=== PATIENT | male | born 1950 | race Hispanic/Latino ===

== ENCOUNTER 2017-11-26 17:33 | Observation (INO) | payer MEDICARE, MEDICAID ==
[2017-11-26 18:33] VITALS: BMI 31.4
--- NOTE | 2017-11-26 19:30 | ED PDOC ---
Arrival/HPI <Сергей Lee - Last Filed: 11/27/17 01:49> - General Historian: Patient <LornealexandruRian - Last Filed: 11/27/17 02:03> - General Chief Complaint: Lower Extremity Problem/Injury Time Seen by Provider: 11/26/17 19:12 - History of Present Illness Narrative History of Present Illness (Text): 11/26/17 19:27 67 year old male, past medical history of Gout, Heart Valve replacement and pacemaker, hyperlipidemia, and kidney stones, presents to the Emergency department with sharp left knee pain that started yesterday morning. Patient states he woke up with sharp, nonradiating knee pain and erythema that prevents him from bending his knee and ambulating. The pain has disrupted his sleeping. He tried ice packs and Voltarin (Yi muscle cream) that provided minimal relief. He has never experienced this pain before. He states he had an arthroscopic meniscus repair of the opposite knee years ago in [place] that has not caused any issues. Denies fever, chills, nausea, vomiting, shortness of breath, chest pain, headache, dizziness, or urinary symptoms. 11/27/17 01:45 (Rian Randolph) Past Medical History - Provider Review Nursing Documentation Reviewed: Yes - Infectious Disease Hx of Infectious Diseases: None - Tetanus Immunization Tetanus Immunization: Unknown - Cardiac Hx Cardiac Disorders: Yes Hx Pacemaker: Yes (pacemaker/defibrillator) Other/Comment: Heart Valve replacement - Pulmonary Hx Respiratory Disorders: No - Neurological Hx Neurological Disorder: No - HEENT Hx HEENT Disorder: No - Renal Hx Renal Disorder: Yes Hx Kidney Stones: Yes - Endocrine/Metabolic Hx Endocrine Disorders: Yes Hx Diabetes Mellitus Type 2: Yes - Hematological/Oncological Hx Blood Disorders: No - Integumentary Hx Dermatological Disorder: No - Musculoskeletal/Rheumatological Hx Musculoskeletal Disorders: No - Gastrointestinal Hx Gastrointestinal Disorders: No - Genitourinary/Gynecological Hx Genitourinary Disorders: No - Psychiatric Hx Psychophysiologic Disorder: No Hx Substance Use: No - Surgical History Hx Cardiac Catheterization: Yes Hx Coronary Stent: Yes (04/04) Other/Comment: ureteral stent removal right, kub - Anesthesia Hx Anesthesia Reactions: No Hx Malignant Hyperthermia: No - Suicidal Assessment Feels Threatened In Home Enviroment: No <Rian Randolph - Last Filed: 11/27/17 02:03> Family/Social History - Physician Review Nursing Documentation Reviewed: Yes Family/Social History: No Known Family HX Smoking Status: Former Smoker Hx Alcohol Use: No Hx Substance Use: No Hx Substance Use Treatment: No <Rian Randolph - Last Filed: 11/27/17 02:03> Allergies/Home Meds <IrvinggurpreetСергей - Last Filed: 11/27/17 01:49> <Rian Randolph - Last Filed: 11/27/17 02:03> Allergies/Adverse Reactions: Allergies No Known Allergies Allergy (Verified 11/26/17 18:34) Home Medications: Home Meds Medication Instructions Recorded Confirmed Aspirin 81 mg PO DAILY 12/04/11 06/05/13 Hydrochlorothiazide/Valsarta 1 tab PO DAILY 12/04/11 06/05/13 [Diovan Hct 12.5 mg-80 mg] Metoprolol Succinate 25 mg PO QPM 12/04/11 06/05/13 Rosuvastatin Calcium [Crestor] 20 mg PO QPM 12/04/11 06/05/13 Ciprofloxacin HCl [Cipro] 500 mg PO BID 12/14/11 06/05/13 Clopidogrel Hydrogen Sulfate 75 mg PO DAILY 12/14/11 06/05/13 [Plavix] Cefuroxime Axetil [Ceftin] 500 mg PO BID 06/05/13 06/05/13 Phenazopyridine Hydrochlorid2 200 mg PO TID 06/05/13 06/05/13 [Pyridium] Review of Systems - Physician Review All systems were reviewed & negative as marked: Yes - Review of Systems Constitutional: absent: Fevers Eyes: absent: Vision Changes ENT: absent: Hearing Changes Respiratory: absent: SOB, Cough Cardiovascular: absent: Chest Pain, Palpitations Gastrointestinal: absent: Abdominal Pain, Nausea, Vomiting Genitourinary Male: absent: Dysuria Musculoskeletal: Other (sharp knee pain) Skin: Other (erythema ) Neurological: absent: Headache, Dizziness Endocrine: absent: Diaphoresis <Rian Randolph - Last Filed: 11/27/17 02:03> Physical Exam Vital Signs Reviewed: Yes Temperature: Afebrile Blood Pressure: Normal Pulse: Regular Respiratory Rate: Normal Appearance: Positive for: Well-Appearing, Non-Toxic, Comfortable Pain Distress: None Mental Status: Positive for: Alert and Oriented X 3 Finger Stick Blood Glucose: 111 - Systems Exam Head: Present: Atraumatic, Normocephalic Pupils: Present: PERRL Extroacular Muscles: Present: EOMI Conjunctiva: Present: Normal Mouth: Present: Moist Mucous Membranes Respiratory/Chest: Present: Clear to Auscultation, Good Air Exchange. No: Respiratory Distress, Accessory Muscle Use Cardiovascular: Present: Murmurs, Normal S1, S2, Peripheal Pulses Present Abdomen: No: Tenderness, Distention, Peritoneal Signs Upper Extremity: Present: Normal Inspection Lower Extremity: Present: NORMAL PULSES, Tenderness, Swelling, Erythema, Other ( Left knee tender over patella, swollen, erythema, and warm) Skin: Present: Warm, Erythematous Psychiatric: Present: Alert, Oriented x 3 <Rian Randolph - Last Filed: 11/27/17 02:03> Vital Signs Temp Pulse Resp BP Pulse Ox 11/27/17 01:45 97.6 F 62 18 129/59 L 99 11/27/17 00:08 97.6 F 61 18 130/72 98 11/26/17 18:31 98.7 F 65 19 123/63 96 Medical Decision Making <Сергей Lee - Last Filed: 11/27/17 01:49> <Rian Randolph - Last Filed: 11/27/17 02:03> ED Course and Treatment: 11/26/17 19:35 67M, PMH of heart disease and valve replacement on Plavix, presents to the Emergency department with left knee pain that started yesterday. Ordered CBC, ESR, uric acid, CMP, and left knee x-ray. Toradol for pain. 11/27/17 00:[address] Mae, recommendations include joint aspiration, consult for Dr. Sanchez and admit for observation. He would like joint aspiration done in the Emergency department. 11/27/17 01:45 Patient consented to left knee joint aspiration. Joint aspiration attempt unsuccessful. No fluid was collected. Will be admitted to observation for IV antibiotics and to be seen by Dr. Sanchez. 11/27/17 02:02 Patient states the pain has improved significantly. He is able to bend his knee. The erythema and swelling have also improved since arrival to emergency department. Patient verbalized understanding and agreement of treatment plan. Case reviewed and discussed with attending provider. (Rian Randolph) - Lab Interpretations Lab Results: 11/26/17 20:15 11/26/17 20:15 Lab Results 11/26/17 20:15: Sodium 145, Potassium 3.9, Chloride 108 H, Carbon Dioxide 26, Anion Gap 15, BUN 19, Creatinine 1.2, Est GFR ( Amer) > 60, Est GFR (Non- Af Amer) > 60, Random Glucose 99, Uric Acid 7.3, Calcium 9.1, Phosphorus 3.3, Magnesium 2.1, Total Bilirubin 0.5, AST 23, ALT 37, Alkaline Phosphatase 59, Total Protein 7.2, Albumin 4.4, Globulin 2.8, Albumin/Globulin Ratio 1.6 11/26/17 20:15: WBC 8.6, RBC 3.71, Hgb 11.8 L, Hct 34.4 L, MCV 92.7, MCH 31.8, MCHC 34.3, RDW 12.7, Plt Count 153, MPV 9.2, Gran % 73.7 H, Lymph % (Auto) 19.8 L, Benton % (Auto) 6.1 H, Eos % (Auto) 0.3 L, Baso % (Auto) 0.1, Gran # 6.34, Lymph # (Auto) 1.7, Benton # (Auto) 0.5, Eos # (Auto) 0.0, Baso # (Auto) 0.01, ESR 30 H 11/26/17 19:20: POC Glucose (mg/dL) 111 H - RAD Interpretation Radiology Orders: 11/26/17 19:45 KNEE LEFT 2 VIEWS (AP & LAT) [RAD] Stat - Medication Orders Current Medication Orders: Discontinued Medications Vancomycin HCl (Vancomycin 1gm) 1 gm in 250 mls @ 167 mls/hr IVPB STAT STA PRN Reason: Protocol Stop: 11/27/17 01:07 Last Admin: 11/27/17 00:04 Dose: 167 mls/hr eMAR Start Stop Document 11/27/17 00:04 OCS (Rec: 11/27/17 00:04 OCS [id number]) Intravenous Solution Start Date 11/27/17 Start Time 00:04 End Date 11/27/17 End time 01:34 Total Infusion Time 90 Ketorolac Tromethamine (Toradol) 60 mg IM STAT STA Stop: 11/26/17 19:46 Last Admin: 11/26/17 20:56 Dose: 60 mg MAR Pain Assessment Document 11/26/17 20:56 HI (Rec: 11/26/17 20:[address] [id number] Pain Reassessment Is this a pain reassessment? No Sleep Is patient sleeping during reassessment? No Presence of Pain Presence of Pain Yes Location Left, Right or Bilateral Right Pain Location Body Site Knee Description Description Constant Intensity of Pain at present 7 Acceptable Level of Pain 0 Pain Behavior Facial Grimacing Alleviating Factors/Management Medication Techniques Alleviating Factors Medication IM Administration Charges Document 11/26/17 20:56 HI (Rec: 11/26/17 20:[address] [id number]) Injection Site MAR Injection Site Right Arm Charges for Administration # of IM Administrations 1 - Scribe Statement The provider has reviewed the documentation as recorded by the Scribe <Сергей Lee - Last Filed: 11/27/17 01:49> <Rian Randolph - Last Filed: 11/27/17 02:03> - Scribe Statement Patient Seen With Resident: In agreement with resident note which contains more details about the patient. Patient was seen and evaluated with resident. Came up with plan and treatment together. (Сергей Lee) Disposition/Present on Arrival <Сергей Lee - Last Filed: 11/27/17 01:49> - Present on Arrival Any Indicators Present on Arrival: No History of DVT/PE: No History of Uncontrolled Diabetes: No Urinary Catheter: No History of Decub. Ulcer: No History Surgical Site Infection Following: Orthopedic Procedures - Disposition Have Diagnosis and Disposition been Completed?: Yes Disposition Time: 00:06 Patient Plan: Admission, Observation <Rian Randolph - Last Filed: 11/27/17 02:03> - Disposition Diagnosis: Knee effusion, left, Gout Disposition: HOSPITALIZED Patient Problems: Current Active Problems Problem Status Onset Knee effusion, left Acute Condition: GOOD
[2017-11-26 20:54] LABS: BASO # 0.01 K/mm3 (0.0-2.0); BASO % 0.1 % (0.0-3.0); EOS % 0.3 % (1.5-5.0); GRAN # 6.34 (1.4-6.5); GRAN % 73.7 % (50.0-68.0); HEMOGLOBIN 11.8 g/dL (14.0-18.0); LYMPH # 1.7 (1.2-3.4); LYMPH % 19.8 % (22.0-35.0); MEAN CELL VOLUME 92.7 fl (80.0-105.0); MEAN CORPUSCULAR HEMOGLOBIN 31.8 pg (25.0-35.0); MEAN CORPUSCULAR HGB CONC 34.3 g/dl (31.0-37.0); MEAN PLATELET VOLUME 9.2 fl (7.0-11.0); MONO # 0.5 (0.1-0.6); MONO % 6.1 % (1.0-6.0); RBC 3.71 10^6/uL (3.5-6.1); RED CELL DISTRIBUTION WIDTH 12.7 % (11.5-14.5); WHITE BLOOD COUNT 8.6 10^3/ul (4.5-11.0)
[2017-11-26 21:03] LABS: ALB/GLOB RATIO 1.6 (1.1-1.8); ALBUMIN 4.4 g/dL (3.0-4.8); ALT/SGPT 37 U/L (7-56); AST/SGOT 23 U/L (17-59); BLOOD UREA NITROGEN 19 mg/dL (7-21); CALCIUM 9.1 mg/dL (8.4-10.5); GFR NON-AFRICAN AMERICAN > 60; URIC ACID 7.3 mg/dL (3.5-8.5)
[2017-11-26] MEDS ORDERED: Vancomycin 1gm in NS 250ml 1 GM/250 ML BAG IVPB STA (23:38)
[2017-11-27 03:22] VITALS: PULSE 61; O2SAT 96
[2017-11-27 05:42] VITALS: BP 159/70; RESP 20; TEMP 97.9
[2017-11-27] MEDS ORDERED: Oxycodone/Acetaminophen 5/325 mg Tab PO PRN ×2 (08:03→09:12)
--- NOTE | 2017-11-27 12:24 | RAD ---
Date of service: 11/26/2017 PROCEDURE: Left Knee Radiographs. HISTORY: Pain. COMPARISON: None. FINDINGS: BONES: Normal. No fracture. JOINTS: Normal. No osteoarthritis. JOINT EFFUSION: None. OTHER FINDINGS: None. IMPRESSION: Normal radiographs of the left knee.
--- NOTE | 2017-11-27 13:40 | CON ---
Copied To: Cricket Sanchez DO Attending MD: Cricket Sanchez DO DATE: 11/27/2017 A 67-year-old male seen when he was just shortly admitted late last night with left knee pain that woke him up this morning with a knee x-ray that shows no osteoarthritis, has a very little effusion of the left knee and he states there is no pain of the left knee this morning and does not want to get aspiration if there is any fluid underneath. If that is the case, I could have injected him with cortisone for the knee pain as he has a history of gout, but there is no significant effusion of the left knee. He moves it well, walks to the bathroom, that is why he said he wants to go home and has no need for treatment for left knee problems as he has no pain. I am glad to see him in the office because it looks like he has a decreased joint space medially that could give him a problem for early osteoarthritis, so if he has any other problems in the future, I would be glad to see him in the office. FINAL DIAGNOSES: Transient left knee pain. No significant effusion. The patient refuses any aspiration of his left knee. I will follow him if the condition gets worse. Cricket Sanchez DO
[2017-11-27] MEDS ORDERED: Metoprolol Succinate 25 mg XL Tab PO SCH (18:00)
== END 2017-11-27 13:18 | disposition home or self-care (01) ==
LOC: ED 17:33 → ERH 11-27 01:46 → 5RSO 11-27 04:05
PROVIDERS: ADMIT Internal Medicine; ATTEND Internal Medicine
DX: M25.562 Pain in left knee (principal); E11.9 Type 2 diabetes mellitus without complications; M10.9 Gout, unspecified; E78.5 Hyperlipidemia, unspecified; Z95.2 Presence of prosthetic heart valve; Z95.5 Presence of coronary angioplasty implant and graft; Z87.442 Personal history of urinary calculi; Z95.0 Presence of cardiac pacemaker; Z79.82 Long term (current) use of aspirin
CPT/HCPCS: 73560; 80053; 82948; 83735; 84100; 84550; 85025; 85651; 87040; 96365; 96372; 99285; G0378; J1885